=== PATIENT | male | born 1970 | race Caucasian/White ===

== ENCOUNTER 2020-07-20 10:37 | Emergency (ER) | payer SELFPAY ==
[2020-07-20 11:07] VITALS: BMI 35.5
[2020-07-20] MEDS ORDERED: BAMLANIVIMAB 700 MG, ETESEVIMAB 1,400 MG in SODIUM CHLORIDE 250 ML IVPB ONE (11:39)
[2020-07-20 15:08] VITALS: BP 136/76; PULSE 66; TEMP 98.7
== END 2020-07-20 15:10 | disposition home or self-care (01) ==
LOC: JER 10:37
DX: U07.1 COVID-19 (principal)
CPT/HCPCS: 99284-25; M0239; Q0239; Q0245